=== PATIENT | male | born 1975 | race Two or more races ===

== ENCOUNTER 2018-10-25 19:29 | Emergency (ER) | payer OTHER ==
[~2018-10-25] VITALS: Ht 177.8 cm; Wt 86.2 kg
[~2018-10-25 19:29] MED LIST: HYDR25TA4 PO
[2018-10-25 19:48] VITALS: BP 135/81
== END 2018-10-25 20:58 | disposition home or self-care (01) ==
LOC: ER 19:40
DX: H60.92 Unspecified otitis externa, left ear (principal); J06.9 Acute upper respiratory infection, unspecified; I10 Essential (primary) hypertension; F17.200 Nicotine dependence, unspecified, uncomplicated; Z98.890 Other specified postprocedural states; Z79.899 Other long term (current) drug therapy

== ENCOUNTER 2018-12-09 08:57 | Emergency (ER) | payer OTHER ==
[~2018-12-09] VITALS: Ht 167.6 cm; Wt 77.1 kg
[2018-12-09 09:05] VITALS: BP 121/68
--- NOTE | 2018-12-09 10:07 | NUR ---
Patient discharged to home in stable condition. Written and verbal after care instructions given. Patient verbalizes understanding of instruction.
== END 2018-12-09 10:06 | disposition home or self-care (01) ==
LOC: ER 08:57
DX: J10.1 Influenza due to other identified influenza virus with other respiratory manifestations (principal); M79.10 Myalgia, unspecified site; I10 Essential (primary) hypertension; F17.200 Nicotine dependence, unspecified, uncomplicated; Z98.890 Other specified postprocedural states; Z79.899 Other long term (current) drug therapy
CPT/HCPCS: 87400

== ENCOUNTER 2018-12-14 18:13 | Emergency (ER) | payer OTHER ==
[~2018-12-14] VITALS: Ht 177.8 cm; Wt 85.7 kg
[2018-12-14 18:16] VITALS: BP 119/94
[2018-12-14] MEDS ORDERED: AZITHROMYCIN 250 MG TABLET ONE (18:48)
[2018-12-14] MEDS ORDERED: AZITHROMYCIN 250 MG TABLET PO ONE (19:00)
== END 2018-12-14 21:36 | disposition home or self-care (01) ==
LOC: ER 18:20
DX: J40 Bronchitis, not specified as acute or chronic (principal); J32.9 Chronic sinusitis, unspecified; I10 Essential (primary) hypertension; F17.200 Nicotine dependence, unspecified, uncomplicated; Z98.890 Other specified postprocedural states
CPT/HCPCS: 71046

== ENCOUNTER 2019-07-30 13:50 | Emergency (ER) | payer OTHER ==
[~2019-07-30] VITALS: Ht 177.8 cm; Wt 86.2 kg
[2019-07-30 14:40] VITALS: BP 165/101
== END 2019-07-30 15:06 | disposition home or self-care (01) ==
LOC: ER 13:52
DX: J20.9 Acute bronchitis, unspecified (principal); I10 Essential (primary) hypertension; F17.200 Nicotine dependence, unspecified, uncomplicated; Z98.890 Other specified postprocedural states; Z79.899 Other long term (current) drug therapy
CPT/HCPCS: 71045-TC

== ENCOUNTER 2020-12-12 14:08 | Emergency (ER) | payer OTHER ==
[~2020-12-12] VITALS: Ht 177.8 cm; Wt 81.6 kg
[2020-12-12 14:22] VITALS: BP 153/95
[2020-12-12] MEDS ORDERED: BENZ-13 PO (15:16)
[2020-12-12] MEDS ORDERED: IBUP-1955 PO (15:17)
== END 2020-12-12 15:37 | disposition home or self-care (01) ==
LOC: ER 14:33
DX: R05 Cough (principal); T50.B95A Adverse effect of other viral vaccines, initial encounter; I10 Essential (primary) hypertension; F17.200 Nicotine dependence, unspecified, uncomplicated; Z90.49 Acquired absence of other specified parts of digestive tract; Z98.890 Other specified postprocedural states; Z79.899 Other long term (current) drug therapy; Y92.89 Other specified places as the place of occurrence of the external cause

== ENCOUNTER 2024-02-20 13:59 | Emergency (ER) | payer OTHER ==
[~2024-02-20] VITALS: Ht 170.2 cm; Wt 87.5 kg
[~2024-02-20 13:59] MED LIST changes: +BENZ-13 PO; +IBUP-1955 PO; +MECL-159 PO
[2024-02-20] MEDS ORDERED: MECLIZINE HCL 25 MG TABLET ONE (14:31)
[2024-02-20] MEDS: IV NS 0.9% 500 ML BAG IV ONE (14:49)
[2024-02-20] MEDS: MECLIZINE HCL 12.5 MG TABLET PO ONE (14:50)
[2024-02-20 14:53] LABS: BASOPHILS % (AUTO) 0.4 % (0.0-2.0); EOSINOPHILS # (AUTO) 0.1 K/uL (0.0-0.7); EOSINOPHILS % (AUTO) 3.1 % (0.0-6.0); HEMATOCRIT 40 % (39-51); HEMOGLOBIN 13.7 g/dL (13.5-17.5); LYMPHOCYTES # (AUTO) 1.8 K/uL (0.8-4.8); LYMPHOCYTES % (AUTO) 40.2 % (20.0-44.0); MEAN CORPUSCULAR HEMOGLOBIN 31 PG (26.0-33.0); MEAN CORPUSCULAR HGB CONC 34 g/dl (31.0-36.0); MEAN CORPUSCULAR VOLUME 91 fL (80-96); MONOCYTES # (AUTO) 0.6 K/uL (0.1-1.30); NEUTROPHILS # (AUTO) 1.9 K/uL (1.8-8.9); NEUTROPHILS % (AUTO) 42.3 % (43.0-81.0); PLATELET COUNT (AUTO) 201 K/uL (150-450); RED BLOOD CELL COUNT(AUTO) 4.44 MIL/uL (4.5-6.0); RED CELL DISTRIBUTION WIDTH 14.8 % (11.5-15.0); WHITE BLOOD COUNT (AUTO) 4.5 K/uL (4.3-11.0)
[2024-02-20 15:18] LABS: CALCIUM, SERUM 9.7 mg/dL (8.5-10.1); POTASSIUM 3.5 mmol/L (3.5-5.1)
[2024-02-20] MEDS ORDERED: MECL-159 PO (15:39)
[2024-02-20 15:59] VITALS: BP 138/89; TEMP 98.4; O2SAT 97
== END 2024-02-20 15:59 | disposition home or self-care (01) ==
LOC: ER 14:03
DX: H81.10 Benign paroxysmal vertigo, unspecified ear (principal); I10 Essential (primary) hypertension; K50.90 Crohn's disease, unspecified, without complications; F17.200 Nicotine dependence, unspecified, uncomplicated
CPT/HCPCS: 99283; 85025; 80048; 36415; J8597; J7040

== ENCOUNTER 2024-02-29 15:16 | Emergency (ER) | payer OTHER ==
[~2024-02-29] VITALS: Ht 172.7 cm; Wt 91.6 kg
[2024-02-29 15:28] VITALS: TEMP 98.6
[2024-02-29] MEDS: IV NS 0.9% 1,000 ML BAG IV ONE (16:14)
[2024-02-29 16:27] LABS: BASOPHILS % (AUTO) 0.6 % (0.0-2.0); EOSINOPHILS # (AUTO) 0.2 K/uL (0.0-0.7); EOSINOPHILS % (AUTO) 3.9 % (0.0-6.0); HEMATOCRIT 39 % (39-51); HEMOGLOBIN 13.5 g/dL (13.5-17.5); LYMPHOCYTES # (AUTO) 1.9 K/uL (0.8-4.8); LYMPHOCYTES % (AUTO) 37.6 % (20.0-44.0); MEAN CORPUSCULAR HEMOGLOBIN 31 PG (26.0-33.0); MEAN CORPUSCULAR HGB CONC 34 g/dl (31.0-36.0); MEAN CORPUSCULAR VOLUME 91 fL (80-96); MONOCYTES # (AUTO) 0.7 K/uL (0.1-1.30); MONOCYTES % (AUTO) 13.4 % (2.0-12.0); NEUTROPHILS # (AUTO) 2.3 K/uL (1.8-8.9); NEUTROPHILS % (AUTO) 44.5 % (43.0-81.0); PLATELET COUNT (AUTO) 182 K/uL (150-450); RED BLOOD CELL COUNT(AUTO) 4.33 MIL/uL (4.5-6.0); RED CELL DISTRIBUTION WIDTH 14.6 % (11.5-15.0); WHITE BLOOD COUNT (AUTO) 5.2 K/uL (4.3-11.0)
[2024-02-29] MEDS: PROMETHAZINE HCL 25 MG TABLET PO SCH (16:31)
[2024-02-29 16:47] LABS: CALCIUM, SERUM 9.7 mg/dL (8.5-10.1); CREATININE 1.4 mg/dL (0.6-1.3); POTASSIUM 3.4 mmol/L (3.5-5.1)
[2024-02-29] MEDS ORDERED: PROM25TA15 PO (18:30)
[2024-02-29] MEDS ORDERED: METF-440 PO (18:30)
[2024-02-29 18:59] VITALS: BP 139/94; O2SAT 100
== END 2024-02-29 19:00 | disposition home or self-care (01) ==
LOC: ER 15:19
DX: H81.10 Benign paroxysmal vertigo, unspecified ear (principal); R73.9 Hyperglycemia, unspecified; I10 Essential (primary) hypertension; F17.200 Nicotine dependence, unspecified, uncomplicated; K50.90 Crohn's disease, unspecified, without complications
CPT/HCPCS: 99284; 96360; 93005; 85025; 80048; 36415; Q0169; J7030